=== PATIENT | female | born 1990 | race Asian ===

== ENCOUNTER 2020-06-29 22:42 | Inpatient (IN) ==
[2020-06-29] MEDS ORDERED: OXYTOCIN 30 UNITS/500 ML BAG IV PRN (23:36)
[2020-06-29] MEDS: LACTATED RINGER'S 1,000 ML IV PRN (23:45)
[2020-06-29] MEDS ORDERED: ePHEDrine sulfate 50 MG/ML AMP ONE (23:46)
[2020-06-29] MEDS ORDERED: SODIUM CHLORIDE 0.9% INJ 10 ML VIAL ONE (23:46)
[2020-06-29] MEDS ORDERED: fentaNYL citrate 100 MCG/2 ML VIAL ONE (23:47)
[2020-06-29] MEDS ORDERED: BUPIVACAINE 0.25% 30 ML VIAL ONE (23:47)
[2020-06-29] MEDS ORDERED: fentaNYL 2MCG/ML ROPIVACAINE 1.25MG/ML 100 ML BAG EPI ONE (23:48)
[2020-06-29 23:54] LABS: Hematocrit (blood only) 35.8 % (37-47); Hemoglobin 12.4 g/dL (12.0-16.0); Mean Corpuscular Hemoglobin 34.5 pg (25-34); Mean Corpuscular Hgb Conc 34.6 g/dL (32-36); Mean Corpuscular Volume 99.7 fL (80-100); Mean Platelet Volume 11.1 fL (7.4-10.4); Platelet Count 197 K/uL (130-400); RDW Coefficient of Variation 13.5 % (11.5-14.5); RDW Standard Deviation 48.8 fL (36.4-46.3); Red Blood Count 3.59 M/uL (4.2-5.4); White Blood Count 15.09 K/uL (4.8-10.8)
--- NOTE | 2020-06-30 00:01 | Anesthesiology Consultation ---
Date of Service June 30, 2020 Assessment & Plan (1) Encounter for pre-operative examination: Chart Review Chart Review: Acceptable Risk for Labor Epidural History Height/Weight Height: 5 ft 4 in Weight: 66.678 kg Allergies Allergy/AdvReac Type Severity Reaction Status Date / Time No Known Allergies Allergy Verified 06/29/20 11:41 Medications Home Medications Medication Instructions Recorded Confirmed Last Taken prenat.vits,eusebia,rja-znub-ecrfr 1 tab PO DAILY 11/10/19 06/29/20 Unknown breast pump #1 ea 04/26/20 06/29/20 Unknown Active Medications Generic Name Dose Route Start Last Admin Trade Name Freq PRN Reason Stop Dose Admin Lactated Ringer's 1,000 mls @ 125 mls/hr 06/29/20 23:36 06/29/20 23:45 Lr IV 07/01/20 23:35 999 mls/hr .Q8H PRN Administration L&D Protocol Protocol Past Medical History Medical History Encounter for anatomic survey G6PD deficiency Tuberculosis Umbilical hernia Past Family History Family History Grandfather (Maternal) Diabetes Hypertension Heart disease Grandfather (Paternal) Diabetes Hypertension Past Surgical History Surgical History S/P hernia surgery S/P wisdom tooth extraction Social History Smoking Status: Never smoker Do You Dip or Chew Tobacco: No Hx Alcohol Use: No Hx Substance Use: No Physical Exam Vital Signs Last Vital Signs Temp 37.0 C 06/29/20 22:56 Pulse 91 H 06/29/20 22:58 Resp 18 06/29/20 22:58 BP 110/65 06/29/20 22:58 Testing Laboratory Results 06/29/20 23:42
[2020-06-30] MEDS ORDERED: ONDANSETRON INJ 2 MG/ML 2 ML VIAL IV PRN (00:39)
[2020-06-30] MEDS ORDERED: NALOXONE HCL 0.4 MG/1 ML VIAL/CARP IV PRN (00:39)
[2020-06-30] MEDS ORDERED: fentaNYL 2MCG/ML ROPIVACAINE 1.25MG/ML 100 ML BAG EPI PRN (00:39)
[2020-06-30] MEDS ORDERED: NALOXONE HCL 1 MG in SODIUM CHLORIDE 0.9% 1000ML 1,000 ML IV PRN (00:39)
[2020-06-30] MEDS ORDERED: ePHEDrine sulfate 50 MG/ML AMP IV PRN (00:39)
[2020-06-30] MEDS: LACTATED RINGER'S 1,000 ML IV PRN (00:46)
--- NOTE | 2020-06-30 02:13 | History & Physical Report ---
Date of Service June 30, 2020 Assessment & Plan (1) Normal labor: (2) G6PD deficiency: Admission and Anticipated Discharge Date Admission Date: June 29, 2020 s/p epidural and now arom. fetus category one. anticipate . History of Present Illness Chief Complaint: contractions Primary Care Provider: [facility] Patient is a 30yoaf with iup at 40 weeks who presents with some contractions. no lof/vb. +fm. Was 3cm in the office earlier today. labs--A+/ab-/ri/rprnr/hepb-/hiv-/ gtt x 2 nl/gc/ct-/ declines cf/sma/genetics/gbs neg Allergies Allergy/AdvReac Type Severity Reaction Status Date / Time No Known Allergies Allergy Verified 06/29/20 11:41 Home Medications Medication Instructions Recorded Confirmed Type prenat.vits,eusebia,omv-eeqf-sbqaz 1 tab PO DAILY 11/10/19 06/29/20 History breast pump #1 ea 04/26/20 06/29/20 Rx Patient History Medical History Encounter for anatomic survey G6PD deficiency Tuberculosis Umbilical hernia Surgical History S/P hernia surgery S/P wisdom tooth extraction Family History Grandfather (Maternal) Diabetes Hypertension Heart disease Grandfather (Paternal) Diabetes Hypertension Social History (Updated 11/10/19 @ 09:29 by Chandni López) Smoking Status: Never smoker Second Hand Exposure: No; Do You Dip or Chew Tobacco: No; Tobacco Cessation Education Requested by Patient: No Hx Alcohol Use: No Hx Substance Use: No Preferred Language: Prydeinig Communication Ability: Effective Welder Assembler Required: No Beliefs That Will Affect Care: None marital status: marital status details: Franco Mancia [phone] Current Living Situation: Spouse Current Living Situation Comment: Lives with current occupational status: unemployed Other Information That Helps Us Care for You: No Feels Safe at Home: Yes Safety Concerns: Feels Safe At This Time Assistive Devices: None Review of Systems All systems reviewed & are unremarkable except as noted in HPI & below Physical Exam Constitutional: WD/WN, vitals as above Gastrointestinal (Abdomen): soft, gravid, nt Psychiatric: A+Ox3, euthymic affect Genitourinary: cx--on admission , recent exam 0 arom--clear toco--q2min efm--150s with mod variability, accels to 170s, no decels Results & Data ([facility]) Vital Signs (Past 12 Hours) Vital Signs Temp Pulse Resp BP Pulse Ox 06/30/20 02:05 86 97 06/30/20 02:00 85 96 06/30/20 01:55 81 97 06/30/20 01:50 91 H 97 06/30/20 01:45 87 97 06/30/20 01:42 93 H 103/55 L 06/30/20 01:40 81 97 06/30/20 01:35 90 97 06/30/20 01:30 90 18 96 06/30/20 01:25 85 102/56 L 97 06/30/20 01:20 77 96 06/30/20 01:19 88 96/51 L 06/30/20 01:15 87 103/46 L 96 06/30/20 01:10 80 90/54 L 97 06/30/20 01:05 80 18 107/57 L 97 06/30/20 01:00 79 18 97 06/30/20 00:56 76 106/51 L 06/30/20 00:55 76 18 96 06/30/20 00:50 88 18 97 06/30/20 00:48 77 106/54 L 06/30/20 00:46 81 104/54 L 06/30/20 00:45 76 18 103/51 L 98 06/30/20 00:42 74 118/56 L 06/30/20 00:40 74 18 113/54 L 98 06/30/20 00:37 80 87/44 L 06/30/20 00:35 74 18 97 06/30/20 00:34 76 88/50 L 06/30/20 00:32 86 112/61 06/30/20 00:30 78 110/58 L 96 06/30/20 00:25 80 98 06/30/20 00:20 90 97 06/30/20 00:15 76 98 06/30/20 00:10 87 97 06/29/20 22:58 91 H 18 110/65 06/29/20 22:56 37.0 C 91 H 18 110/65 Coding Level of Care Code None Diagnoses Normal labor O80; Z37.9 G6PD deficiency D75.A
[2020-06-30] MEDS ORDERED: IBUPROFEN 600 MG TAB PO PRN (05:08)
[2020-06-30] MEDS ORDERED: ACETAMINOPHEN 325 MG TAB PO PRN (05:08)
[2020-06-30] MEDS ORDERED: oxyCODONE/ACETAMINOPHEN 5mg/325mg TAB PO PRN (05:08)
--- NOTE | 2020-06-30 05:10 | Delivery Summary ---
Vaginal Delivery Summary Date of Service June 30, 2020 Pre-operative Diagnosis: at 39 6/7 weeks active labor G6PD deficiency Post-operative Diagnosis: same Procedure: epidural arom second degree laceration and repair EBL: 300cc Anesthesia: epidural Procedure: The patient pushed for 5 contractions to deliver a viable male infant in jeremy position. The nose and mouth were bulb suctioned on the perineum and the rest of the was then delivered without difficulty. The baby was vigorous. The nose and mouth were again bulb suctioned and the was placed in the maternal abdomen for drying and attention. Cord was clamped and cut at one minute of life. Cord blood and segment obtained. Placenta delivered spontaneous, intact with a three vessel cord. Cervix/sulci/rectum were intact. A second degree perineal laceration was repaired in the normal standard fashion. Hemostasis obtained with dilute pitocin and fundal massage. Apgars were 8/9. Mother and baby doing well at the end of the delivery. Vaginal Delivery Summary and 2nd Degree LAC [facility] Vaginal Delivery Charge Delivery Type Details: and 2nd Degree LAC
[2020-06-30] MEDS ORDERED: OXYTOCIN 30 UNITS/500 ML BAG IV PRN (05:37)
[2020-06-30] MEDS ORDERED: SUPERCREAM 0.870% 15 GM JAR EXT PRN (05:37)
[2020-06-30] MEDS ORDERED: BENZOCAINE 20% AER SPR 82.5 GM CAN EXT PRN (05:37)
[2020-06-30] MEDS ORDERED: bisacodyL 10 MG SUPP PR PRN (05:37)
[2020-06-30] MEDS ORDERED: HYDROCORTISONE ACETATE 25 MG SUPP PR PRN (05:37)
[2020-06-30] MEDS ORDERED: DIPHTHERIA/TETANUS/PERTUSSIS 0.5 ML SYR/VIAL IM ONE (05:37)
--- NOTE | 2020-06-30 12:58 | Anesthesia Procedure Note ---
Date of Service June 30, 2020 Anesthesia Post Epidural Note Vital Signs Vital Signs: Temp Pulse Resp BP Pulse Ox 36.9 C 80 18 103/63 98 06/30/20 11:25 06/30/20 11:25 06/30/20 11:25 06/30/20 11:25 06/30/20 11:25 Notes Mental Status: alert / awake / arousable Nausea / Vomiting: adequately controlled Pain: adequately controlled Airway Patency, RR, SpO2: stable & adequate BP & HR: stable & adequate Hydration State: stable & adequate Neuraxial Anesthesia: was administered and sensory block is resolving Anesthetic Complications: no major complications apparent and Pt Satisfied with anesthetic care Epidural: Removed without complications and With tip intact
[2020-06-30] MEDS: DOCUSATE SODIUM 100 MG CAP PO SCH ×2 (20:34→20:36)
[2020-06-30] MEDS: PRENATAL VITAMIN 1 TAB PO SCH (20:36)
[2020-07-01 06:35] LABS: Hematocrit (blood only) 36.3 % (37-47); Hemoglobin 11.9 g/dL (12.0-16.0)
--- NOTE | 2020-07-01 07:23 | Obstetrical Progress Note ---
Date of Service July 01, 2020 Assessment & Plan (1) examination following vaginal delivery: stable, routine care. breast/rh pos/Ri. Day #:: 1 Subjective Ambulation: ambulating normally Voiding: no voiding problems Diet Tolerance:: regular diet Lochia:: Small Feeding Type:: breast feeding no pain issues. Physical Exam Constitutional WD/WN, vitals as above Respiratory normal respiratory effort, lungs clear to auscultation Cardiovascular Rate/Rhythm: regular rate and regular rhythm Gastrointestinal (Abdomen) Inspection/Auscultation: abdomen normal to inspection Percussion/Palpation: abdomen soft; abdomen nontender Fundus firm 2cm down Musculoskeletal nt calves no edema Neurologic grossly normal Psychiatric A+Ox3, euthymic affect Results & Data ([facility]) Vital Signs (Past 12 Hours) Vital Signs Temp Pulse Resp BP 07/01/20 04:45 98.4 F 72 16 102/53 L 06/30/20 23:15 99.0 F 80 18 98/62 L 06/30/20 19:50 99.1 F 90 18 99/61 L
[2020-07-01] MEDS: DOCUSATE SODIUM 100 MG CAP PO SCH ×2 (07:37→21:09)
[2020-07-01] MEDS: PRENATAL VITAMIN 1 TAB PO SCH (07:37)
[2020-07-01] MEDS ORDERED: bisacodyL 5 MG TABEC PO SCH (20:00)
--- NOTE | 2020-07-02 07:53 | Obstetrical Progress Note ---
Date of Service July 02, 2020 Assessment & Plan (1) examination following vaginal delivery: - doing well - desires d/c - instructions given - f/u in 6 weeks for pp check Subjective Ambulation: ambulating normally Feeding Type:: breast feeding Physical Exam Constitutional WD/WN, vitals as above Gastrointestinal (Abdomen) Fundus firm below umbilicus Musculoskeletal No deep calf tenderness Results & Data ([facility]) Vital Signs (Past 12 Hours) Vital Signs Temp Pulse Resp BP 07/02/20 00:10 98.6 F 69 16 107/71
[2020-07-02] MEDS: PRENATAL VITAMIN 1 TAB PO SCH (09:02)
[2020-07-02] MEDS: DOCUSATE SODIUM 100 MG CAP PO SCH (09:02)
== END 2020-07-02 12:25 | disposition home or self-care (01) | DRG 807 ==
LOC: OPB 22:42 → 4S1 22:45 → 4S2 06-30 07:34